=== PATIENT | female | born 1985 | race African-American/Black ===

== ENCOUNTER 2021-07-18 09:44 | Emergency (ER) | payer SELFPAY | END 2021-07-18 10:50 | disposition home or self-care (01) | LOC: JD.ED 09:44 | DX: K08.89 Other specified disorders of teeth and supporting structures (principal); E66.9 Obesity, unspecified; Z68.38 Body mass index [BMI] 38.0-38.9, adult | CPT/HCPCS: 99282; 99283 ==

== ENCOUNTER 2021-09-13 05:29 | Emergency (ER) | payer MEDICAID ==
[2021-09-13] MEDS ORDERED: Sodium Chloride 0.9% 10 ML Syringe FLUSH PRN (07:26)
[2021-09-13] MEDS ORDERED: Indomethacin 25 MG Cap PO ONE (08:33)
== END 2021-09-13 08:41 | disposition left against medical advice (07) ==
LOC: JD.ED 05:29
DX: M10.9 Gout, unspecified (principal); K21.9 Gastro-esophageal reflux disease without esophagitis; E66.9 Obesity, unspecified; Z68.37 Body mass index [BMI] 37.0-37.9, adult
CPT/HCPCS: 73630-26-LT; 73630-LT; 99283-25

== ENCOUNTER 2023-01-04 02:52 | Emergency (ER) | payer MEDICAID ==
[2023-01-04] MEDS ORDERED: Acetaminophen/HYDROcodone 325-10 MG Tab PO ONE (02:59)
== END 2023-01-04 03:10 | disposition home or self-care (01) ==
LOC: JD.ED 02:52
DX: K08.89 Other specified disorders of teeth and supporting structures (principal); E66.9 Obesity, unspecified; Z68.41 Body mass index [BMI] 40.0-44.9, adult
CPT/HCPCS: 99282; A9270